=== PATIENT | male | born 1975 | race Caucasian/White ===

== ENCOUNTER 2021-10-13 08:50 | Emergency (ER) | payer OTHER ==
[2021-10-13 09:18] LABS: HEMOGLOBIN 14.7 gm/dl (14.0-17.5); RED BLOOD COUNT 5.08 M/UL (4.20-5.50); WHITE BLOOD COUNT 7.3 K/UL (4.5-11.0)
[2021-10-13 09:57] LABS: BUN/CREATININE RATIO 11 (0-10)
[2021-10-13] MEDS ORDERED: HYDROCODON-ACE1 EAC4 PO (11:11)
== END 2021-10-13 11:22 | disposition home or self-care (01) ==
LOC: ER1 08:50
PROVIDERS: Physician Assistant
DX: N13.2 Hydronephrosis with renal and ureteral calculous obstruction (principal); E78.5 Hyperlipidemia, unspecified; I10 Essential (primary) hypertension; F17.210 Nicotine dependence, cigarettes, uncomplicated
CPT/HCPCS: 80053; 81001; 83690; 85025; 96374; 99284; J1885